=== PATIENT | male | born 1955 | race Caucasian/White ===

== ENCOUNTER → 2020-11-01 | Outpatient (CLI) | payer OTHER ==
[~2020-11-01] MED LIST: CIPROFLOXIN HC2.5 M1 OPHTHALMIC; LIPITOR10 MG PO; METFORMIN HCL500 MG PO; MOBIC7.5 MG PO
== END ==
LOC: M.RAD 15:32
PROVIDERS: ATTEND Nurse Practitioner Family
DX: R05 Cough (principal)